=== PATIENT | female | born 1935 | race African-American/Black ===

== ENCOUNTER 2018-12-10 16:10 | Inpatient (IN) | payer MEDICARE ==
[~2018-12-10] VITALS: Ht 167.6 cm; Wt 103.0 kg
[2018-12-10] MEDS ORDERED: ONDANSETRON HCL 4MG/2ML INJ IV STA (19:44)
[2018-12-10] MEDS ORDERED: MORPHINE SULFATE 4 MG/ML CPJ (NOT FOR IM USE) IV STA (19:44)
[2018-12-10] MEDS ORDERED: SODIUM CHLORIDE 0.9% 1,000 ML IV ONE (19:44)
[2018-12-10] MEDS ORDERED: ACETAMINOPHEN 325MG TABLET PO ONE (20:30)
[2018-12-10] MEDS ORDERED: MAGNESIUM/ALUMINUM HYDROXIDE/SIMETHICONE 30ML UDC PO PRN (22:15)
[2018-12-10] MEDS ORDERED: ONDANSETRON HCL 4MG/2ML INJ IV PRN (22:15)
[2018-12-10] MEDS ORDERED: MORPHINE SULFATE 2 MG/ML CPJ (NOT FOR IM USE) IV PRN (22:15)
[2018-12-11 00:23] LABS: CHLORIDE 107 mEq/L (98-107)
[2018-12-11 00:24] LABS: BASOPHILS % 0.5 % (0.0-2.0); EOSINOPHILS % 2.7 % (0.0-5.0); HEMATOCRIT. 39.2 % (36.0-48.0); HEMOGLOBIN. 13.4 g/dL (12.0-16.0); LYMPHOCYTES % 31.4 % (20.0-50.0); MEAN CORPUSCULAR VOLUME 93.3 fL (81.0-99.0); MEAN PLATELET VOLUME 7.6 fl (7.4-10.4); MONOCYTES % 8.4 % (2.0-8.0); PLATELET 184 x1000/uL (130-400); RED CELL DISTRIBUTION WIDTH 14.6 % (11.6-14.6)
[2018-12-11 00:26] LABS: INR 1.1; PROTHROMBIN TIME 11.5 sec (9.6-11.0)
[2018-12-11] MEDS: ACETAMINOPHEN 325MG TABLET PO PRN ×2 (02:41→07:10)
[2018-12-11 03:59] VITALS: BP 146/76
[2018-12-11] MEDS: DEXT 5%/0.45% NACL 1000ML 1,000 ML IV SCH ×2 (06:41→21:03)
[2018-12-11 08:00] VITALS: BP_SYST 142; BP_SYST 172; BP_DIAS 81; BP_DIAS 90
[2018-12-11 09:30] LABS: BASOPHILS % 0.3 % (0.0-2.0); HEMATOCRIT. 40.8 % (36.0-48.0); HEMOGLOBIN. 13.9 g/dL (12.0-16.0); LYMPHOCYTES % 15.1 % (20.0-50.0); MEAN CORPUSCULAR HEMOGLOBIN 31.6 pg (28.0-32.0); MEAN PLATELET VOLUME 7.8 fl (7.4-10.4); MONOCYTES % 8.9 % (2.0-8.0); NEUTROPHILS % 73.7 % (40.0-76.0); PLATELET 187 x1000/uL (130-400); RED BLOOD CELL COUNT 4.39 mill/uL (4.2-5.4); RED CELL DISTRIBUTION WIDTH 14.4 % (11.6-14.6)
[2018-12-11] MEDS ORDERED: HYDRALAZINE 20MG/ML VIAL IV PRN (09:30)
[2018-12-11] MEDS ORDERED: POTASSIUM CHLORIDE INJ 40 MEQ in DEXT 5% WATER 250 ML IV SCH (09:30)
[2018-12-11 09:35] LABS: CHLORIDE 105 mEq/L (98-107)
[2018-12-11 09:43] LABS: LDL CHOLESTEROL 63 mg/dL (5-100)
[2018-12-11 09:44] LABS: HDL CHOLESTEROL 49 mg/dL (40-59); T4 FREE 0.96 ng/dL (0.76-1.46)
[2018-12-11] MEDS: ENOXAPARIN 30MG/0.3ML SYR SUBCUT SCH ×2 (10:45→21:03)
[2018-12-11] MEDS: CLONIDINE 0.1MG TABLET PO PRN (10:46)
[2018-12-11] MEDS: AMLODIPINE 10MG TABLET PO SCH (10:48)
[2018-12-11 12:00] VITALS: BP 142/81
[2018-12-11] MEDS: KETOROLAC 30MG/ML VIAL IV PRN ×2 (12:35→22:19)
[2018-12-11 16:00] VITALS: BP 128/73
[2018-12-11 16:07] LABS: CREATINE KINASE 91 IU/L (26-192)
[2018-12-11 16:08] LABS: CREATINE KINASE MB FRACTION < 1.0 ng/mL (0.5-3.6)
[2018-12-11] MEDS: DOCUSATE SODIUM 100MG CAPSULE PO PRN (18:57)
[2018-12-11 20:00] VITALS: BP 150/73
[2018-12-11 23:31] LABS: CREATINE KINASE 89 IU/L (26-192)
[2018-12-11 23:32] LABS: CREATINE KINASE MB FRACTION < 1.0 ng/mL (0.5-3.6)
[2018-12-12] VITALS (8 sets, daily range): BP systolic 126–165; BP diastolic 67–88
[2018-12-12] MEDS: KETOROLAC 30MG/ML VIAL IV PRN ×2 (04:55→19:36)
[2018-12-12 06:55] LABS: CREATINE KINASE 91 IU/L (26-192)
[2018-12-12 06:56] LABS: CREATINE KINASE MB FRACTION < 1.0 ng/mL (0.5-3.6)
[2018-12-12] MEDS: AMLODIPINE 10MG TABLET PO SCH (10:33)
[2018-12-12] MEDS: DOCUSATE SODIUM 100MG CAPSULE PO PRN (10:33)
[2018-12-12] MEDS: ENOXAPARIN 30MG/0.3ML SYR SUBCUT SCH ×2 (10:33→12:43)
[2018-12-12] MEDS: CLONIDINE 0.1MG TABLET PO PRN (10:34)
[2018-12-12] MEDS: ASPIRIN 81MG TABLET PO SCH ×2 (11:00→12:44)
[2018-12-12 12:08] LABS: CHLORIDE 102 mEq/L (98-107)
[2018-12-12] MEDS: DEXT 5%/0.45% NACL 1000ML 1,000 ML IV SCH (13:20)
[2018-12-12] MEDS: ACETAMINOPHEN 325MG TABLET PO PRN (20:17)
[2018-12-13] VITALS: BP 127/74
[2018-12-13] MEDS: KETOROLAC 30MG/ML VIAL IV PRN ×3 (02:50→21:38)
[2018-12-13 04:00] VITALS: BP 126/68
[2018-12-13] MEDS: ACETAMINOPHEN 325MG TABLET PO PRN (05:27)
[2018-12-13 06:38] LABS: CHLORIDE 103 mEq/L (98-107)
[2018-12-13 06:47] LABS: BASOPHILS % 0.4 % (0.0-2.0); EOSINOPHILS % 2.6 % (0.0-5.0); HEMATOCRIT. 40.7 % (36.0-48.0); HEMOGLOBIN. 14.1 g/dL (12.0-16.0); LYMPHOCYTES % 21.1 % (20.0-50.0); MEAN CORPUSCULAR VOLUME 92.7 fL (81.0-99.0); MONOCYTES % 10.7 % (2.0-8.0); NEUTROPHILS % 65.2 % (40.0-76.0); PLATELET 191 x1000/uL (130-400); RED BLOOD CELL COUNT 4.39 mill/uL (4.2-5.4); RED CELL DISTRIBUTION WIDTH 14.2 % (11.6-14.6)
[2018-12-13] MEDS ORDERED: PROPOFOL 200MG/20ML VIAL IV ONE ×2 (07:46→08:07)
[2018-12-13] MEDS ORDERED: MIDAZOLAM HCL 2 MG/2 ML VIAL ONE (07:46)
[2018-12-13] MEDS ORDERED: HYDROMORPHONE HCL/PF 2MG/ML (OR) ONE (07:47)
[2018-12-13] MEDS ORDERED: VANCOMYCIN HCL 500 MG/VIAL ONE (07:52)
[2018-12-13] MEDS ORDERED: ACETAMINOPHEN 325MG TABLET PO PRN (08:00)
[2018-12-13] MEDS ORDERED: HYDROCODONE/ACETAMINOPHEN 5/325MG TABLET PO PRN (08:00)
[2018-12-13] MEDS ORDERED: ONDANSETRON HCL 4MG/2ML INJ IV PRN ×2 (08:00→08:30)
[2018-12-13] MEDS ORDERED: BUPIVACAINE HCL/EPINEPHRINE 0.5%/0.0005 30ML ONE (08:03)
[2018-12-13] MEDS ORDERED: LABETALOL 5MG/ML SYR 20 MG/4 ML SYRINGE IV PRN (08:30)
[2018-12-13] MEDS ORDERED: HYDROMORPHONE HCL/PF 2MG/ML CPJ IV PRN (08:30)
[2018-12-13] MEDS ORDERED: MEPERIDINE HCL/PF 25MG/ML CPJ IV PRN (08:30)
[2018-12-13] MEDS ORDERED: BACITRACIN 15GM TUBE TOP ONE (08:34)
[2018-12-13] MEDS: ENOXAPARIN 30MG/0.3ML SYR SUBCUT SCH ×2 (09:00→21:38)
[2018-12-13] MEDS ORDERED: POTASSIUM CHLORIDE 20MEQ TABLET SR PO NR (09:45)
[2018-12-13 10:46] VITALS: BP 141/82
[2018-12-13 15:44] VITALS: BP 145/79
[2018-12-13] MEDS: AMLODIPINE 10MG TABLET PO SCH (15:45)
[2018-12-13] MEDS: HYDROCODONE/ACETAMINOPHEN 10/325MG TABLET PO PRN ×2 (19:51→23:09)
[2018-12-13 20:00] VITALS: BP 142/69
[2018-12-13] MEDS: DEXT 5%/0.45% NACL 1000ML 1,000 ML IV SCH ×2 (21:51→22:40)
[2018-12-14 00:05] VITALS: BP 138/73
[2018-12-14] MEDS: HYDROCODONE/ACETAMINOPHEN 10/325MG TABLET PO PRN ×2 (02:00→22:32)
[2018-12-14] MEDS: KETOROLAC 30MG/ML VIAL IV PRN (02:51)
[2018-12-14] MEDS: HYDROMORPHONE HCL/PF 2MG/ML CPJ IV PRN ×3 (03:37→18:50)
[2018-12-14 04:00] VITALS: BP 148/71
[2018-12-14 08:00] VITALS: BP 128/85
[2018-12-14] MEDS: ENOXAPARIN 30MG/0.3ML SYR SUBCUT SCH ×2 (09:40→20:40)
[2018-12-14] MEDS: AMLODIPINE 10MG TABLET PO SCH (09:41)
[2018-12-14] MEDS: ASPIRIN 81MG TABLET PO SCH (09:41)
[2018-12-14 12:00] VITALS: BP 140/67
[2018-12-14] MEDS: DEXT 5%/0.45% NACL 1000ML 1,000 ML IV SCH (15:20)
[2018-12-14 16:18] VITALS: BP 133/75
[2018-12-14] MEDS: CLONIDINE 0.1MG TABLET PO PRN (22:17)
[2018-12-14 22:32] VITALS: BP 169/83
== END 2018-12-14 22:35 | DRG 494 ==
LOC: ER 16:10 → 7WST 20:29 → EDBEDREQTM 20:30 → EDBEDREQ 20:30 → SUPCPDRO 22:06 → ENRESERV 12-11 02:34
PROVIDERS: ADMIT Hospitalist; ATTEND Hospitalist
PROC: 0QSJ04Z Reposition Right Fibula with Internal Fixation Device, Open Approach (ICD-10-PCS; principal; 2018-12-13)
PROC: 0QSG04Z Reposition Right Tibia with Internal Fixation Device, Open Approach (ICD-10-PCS; 2018-12-13)
PROC: 0SSF04Z Reposition Right Ankle Joint with Internal Fixation Device, Open Approach (ICD-10-PCS; 2018-12-13)
DX: S82.851A Displaced trimalleolar fracture of right lower leg, initial encounter for closed fracture (principal); E87.6 Hypokalemia; S93.439A Sprain of tibiofibular ligament of unspecified ankle, initial encounter; I10 Essential (primary) hypertension; E78.5 Hyperlipidemia, unspecified; Z96.653 Presence of artificial knee joint, bilateral; Z87.891 Personal history of nicotine dependence; Z79.899 Other long term (current) drug therapy; Z88.0 Allergy status to penicillin; Z88.5 Allergy status to narcotic agent; Z88.8 Allergy status to other drugs, medicaments and biological substances; X50.1XXA Overexertion from prolonged static or awkward postures, initial encounter; Y93.89 Activity, other specified; Y92.89 Other specified places as the place of occurrence of the external cause; Y99.8 Other external cause status
CPT/HCPCS: 36415; 71045; 73600; 73610; 73700; 76000; 80048; 80061; 82550; 82553; 83036; 83735; 83880; 84439; 84443; 84484; 85379; 93005; 93306; 93970; 97162; 97530; 99285; J0171; J1170; J1650; J1885; J2250; J2270; J2405; J2704; J3370; J3480; J7030; J7060

== ENCOUNTER 2018-12-14 22:45 | Inpatient (IN) | payer MEDICARE ==
[~2018-12-14] VITALS: Ht 167.6 cm; Wt 103.0 kg
[2018-12-14 22:45] VITALS: BP 125/73
[2018-12-15] MEDS ORDERED: ACETAMINOPHEN 325MG TABLET PO PRN (01:30)
[2018-12-15] MEDS ORDERED: HYDROMORPHONE HCL/PF 2MG/ML CPJ IV PRN (01:30)
[2018-12-15] MEDS ORDERED: CLONIDINE 0.1MG TABLET PO PRN (01:30)
[2018-12-15] MEDS ORDERED: MAGNESIUM/ALUMINUM HYDROXIDE/SIMETHICONE 30ML UDC PO PRN (01:45)
[2018-12-15] MEDS: HYDROCODONE/ACETAMINOPHEN 10/325MG TABLET PO PRN ×4 (05:13→17:00)
[2018-12-15 07:31] LABS: BASOPHILS % 0.5 % (0.0-2.0); EOSINOPHILS % 3.4 % (0.0-5.0); HEMATOCRIT. 37.2 % (36.0-48.0); HEMOGLOBIN. 12.5 g/dL (12.0-16.0); LYMPHOCYTES % 22.3 % (20.0-50.0); MEAN CORPUSCULAR HEMOGLOBIN 31.6 pg (28.0-32.0); MEAN PLATELET VOLUME 7.8 fl (7.4-10.4); NEUTROPHILS % 62.8 % (40.0-76.0); PLATELET 203 x1000/uL (130-400); RED BLOOD CELL COUNT 3.96 mill/uL (4.2-5.4); RED CELL DISTRIBUTION WIDTH 14.2 % (11.6-14.6)
[2018-12-15 07:35] LABS: CHLORIDE 105 mEq/L (98-107)
[2018-12-15 08:00] VITALS: BP 133/71
[2018-12-15] MEDS: ASPIRIN 81MG TABLET PO SCH (09:02)
[2018-12-15] MEDS: AMLODIPINE 10MG TABLET PO SCH (09:02)
[2018-12-15] MEDS: DOCUSATE SODIUM 100MG CAPSULE PO PRN (09:03)
[2018-12-15] MEDS: ENOXAPARIN 30MG/0.3ML SYR SUBCUT SCH ×2 (09:04→20:42)
[2018-12-15] MEDS ORDERED: BISACODYL 5MG TABLET PO PRN (15:15)
[2018-12-15] MEDS ORDERED: LACTULOSE 20G/30ML UDC PO NR (15:30)
[2018-12-15 20:00] VITALS: BP 158/87
[2018-12-16 07:54] VITALS: BP 179/94
[2018-12-16] MEDS: DOCUSATE SODIUM 100MG CAPSULE PO PRN (08:27)
[2018-12-16] MEDS: HYDROCODONE/ACETAMINOPHEN 10/325MG TABLET PO PRN ×3 (08:27→23:53)
[2018-12-16] MEDS: AMLODIPINE 10MG TABLET PO SCH (08:27)
[2018-12-16] MEDS: ASPIRIN 81MG TABLET PO SCH (08:27)
[2018-12-16] MEDS: ENOXAPARIN 30MG/0.3ML SYR SUBCUT SCH ×2 (08:28→20:21)
[2018-12-16] MEDS: LACTULOSE 20G/30ML UDC PO PRN (15:30)
[2018-12-16] MEDS: NA PHOS,M-B/NA PHOS,DI-BA ENEMA 118ML PR PRN (18:00)
[2018-12-16 20:00] VITALS: BP 150/85
[2018-12-17] MEDS: HYDROCODONE/ACETAMINOPHEN 10/325MG TABLET PO PRN (03:54)
[2018-12-17] MEDS: ONDANSETRON HCL 4MG TABLET PO PRN (08:12)
[2018-12-17 08:50] VITALS: BP 101/67
[2018-12-17] MEDS: ENOXAPARIN 30MG/0.3ML SYR SUBCUT SCH ×2 (08:52→21:05)
[2018-12-17] MEDS: ASPIRIN 81MG TABLET PO SCH (08:52)
[2018-12-17] MEDS: AMLODIPINE 10MG TABLET PO SCH (08:59)
[2018-12-17] MEDS: LIDOCAINE 5% PATCH TOP SCH (09:04)
[2018-12-17] MEDS: OXYCODONE HCL/ACETAMINOPHEN 5/325MG TABLET PO PRN ×2 (12:29→17:45)
[2018-12-17] MEDS: HYDROCODONE/ACETAMINOPHEN 5/325MG TABLET PO PRN (19:47)
[2018-12-17 20:00] VITALS: BP 158/91
[2018-12-17] MEDS: KETOROLAC 15MG/ML VIAL IV PRN (21:11)
[2018-12-18 07:41] VITALS: BP 175/101
[2018-12-18 07:48] VITALS: BP 175/101
[2018-12-18] MEDS: ASPIRIN 81MG TABLET PO SCH (08:24)
[2018-12-18] MEDS: AMLODIPINE 10MG TABLET PO SCH (08:24)
[2018-12-18] MEDS: ENOXAPARIN 30MG/0.3ML SYR SUBCUT SCH ×2 (08:25→21:00)
[2018-12-18] MEDS: LIDOCAINE 5% PATCH TOP SCH (08:25)
[2018-12-18] MEDS: HYDROCODONE/ACETAMINOPHEN 5/325MG TABLET PO PRN (12:38)
[2018-12-18] MEDS: KETOROLAC 15MG/ML VIAL IV PRN (14:19)
[2018-12-18] MEDS: LACTULOSE 20G/30ML UDC PO PRN (17:21)
[2018-12-18] MEDS ORDERED: BISACODYL 10MG SUPP PR NR (18:15)
[2018-12-18 20:00] VITALS: BP 113/60
[2018-12-19] MEDS: HYDROCODONE/ACETAMINOPHEN 5/325MG TABLET PO PRN ×3 (00:26→17:51)
[2018-12-19 01:30] VITALS: BP 172/103
[2018-12-19] MEDS: OXYCODONE HCL/ACETAMINOPHEN 5/325MG TABLET PO PRN (01:39)
[2018-12-19 02:39] VITALS: BP 151/85
[2018-12-19 06:43] LABS: CLARITY URINE CLEAR (CLEAR); COLOR URINE YELLOW (YELLOW); KETONES URINE NEGATIVE (NEGATIVE); LEUKOCYTE ESTERASE URINE 2+ (NEGATIVE); NITRITE URINE NEGATIVE (NEGATIVE); OCCULT BLOOD URINE TRACE (NEGATIVE); PH URINE 6.5 (4.5-8.0); PROTEIN URINE NEGATIVE (NEGATIVE); SPECIFIC GRAVITY URINE 1.019 (1.005-1.030)
[2018-12-19 06:56] LABS: BASOPHILS % 0.7 % (0.0-2.0); EOSINOPHILS % 3.6 % (0.0-5.0); HEMATOCRIT. 38.7 % (36.0-48.0); HEMOGLOBIN. 12.9 g/dL (12.0-16.0); LYMPHOCYTES % 30.3 % (20.0-50.0); MEAN CORPUSCULAR HEMOGLOBIN 31.1 pg (28.0-32.0); MEAN CORPUSCULAR VOLUME 92.9 fL (81.0-99.0); MEAN PLATELET VOLUME 7.6 fl (7.4-10.4); MONOCYTES % 11.4 % (2.0-8.0); PLATELET 245 x1000/uL (130-400); RED BLOOD CELL COUNT 4.16 mill/uL (4.2-5.4)
[2018-12-19 07:28] LABS: FOLIC ACID (FOLATE) SERUM 16.1 ng/mL (>5.38)
[2018-12-19 07:40] VITALS: BP 149/87
[2018-12-19] MEDS: POLYETHYLENE GLYCOL 3350 (17GM) 1 DOSE PACK PO SCH (08:08)
[2018-12-19] MEDS: LIDOCAINE 5% PATCH TOP SCH (08:09)
[2018-12-19] MEDS: DOCUSATE SODIUM 100MG CAPSULE PO SCH ×2 (08:10→17:53)
[2018-12-19] MEDS: AMLODIPINE 10MG TABLET PO SCH (08:10)
[2018-12-19] MEDS: ASPIRIN 81MG TABLET PO SCH (08:12)
[2018-12-19] MEDS: ENOXAPARIN 30MG/0.3ML SYR SUBCUT SCH ×2 (08:12→21:13)
[2018-12-19 08:46] LABS: CHLORIDE 103 mEq/L (98-107)
[2018-12-19 08:54] LABS: PHOSPHORUS 3.5 mg/dL (2.5-4.9); TOTAL IRON BINDING CAPACITY 249 ug/dL (250-450)
[2018-12-19] MEDS: ONDANSETRON HCL 4MG TABLET PO PRN (09:25)
[2018-12-19] MEDS: METOPROLOL TARTRATE 25MG TABLET PO SCH ×2 (09:27→21:13)
[2018-12-19] MEDS ORDERED: POTASSIUM CHLORIDE 20MEQ TABLET SR PO NR (11:00)
[2018-12-19] MEDS: LEVOFLOXACIN 250MG TABLET PO SCH (11:13)
[2018-12-19] MEDS: NA PHOS,M-B/NA PHOS,DI-BA ENEMA 118ML PR PRN (15:33)
[2018-12-19] MEDS: BISACODYL 10MG SUPP PR NR (16:00)
[2018-12-19] MEDS ORDERED: SORBITOL 70% SOLN 30ML PO NR (16:00)
[2018-12-19 20:00] VITALS: BP 143/68
[2018-12-20 08:04] VITALS: BP 130/77
[2018-12-20] MEDS: POLYETHYLENE GLYCOL 3350 (17GM) 1 DOSE PACK PO SCH (08:23)
[2018-12-20] MEDS: LIDOCAINE 5% PATCH TOP SCH (08:23)
[2018-12-20] MEDS: ASPIRIN 81MG TABLET PO SCH (08:24)
[2018-12-20] MEDS: DOCUSATE SODIUM 100MG CAPSULE PO SCH ×2 (08:24→16:17)
[2018-12-20] MEDS: METOPROLOL TARTRATE 25MG TABLET PO SCH ×2 (08:24→20:35)
[2018-12-20] MEDS: AMLODIPINE 10MG TABLET PO SCH (08:24)
[2018-12-20] MEDS: ENOXAPARIN 30MG/0.3ML SYR SUBCUT SCH ×2 (08:24→20:35)
[2018-12-20 08:28] LABS: CHLORIDE 107 mEq/L (98-107)
[2018-12-20] MEDS: LEVOFLOXACIN 250MG TABLET PO SCH (11:06)
[2018-12-20] MEDS ORDERED: KETOROLAC 15MG/ML VIAL IV PRN (12:00)
[2018-12-20] MEDS: ACETAMINOPHEN 325MG TABLET PO PRN (13:14)
[2018-12-20] MEDS: POTASSIUM CHLORIDE 20MEQ TABLET SR PO SCH (14:38)
[2018-12-20 20:00] VITALS: BP 144/81
[2018-12-20] MEDS: HYDROCODONE/ACETAMINOPHEN 5/325MG TABLET PO PRN (22:36)
[2018-12-21] MEDS: OXYCODONE HCL/ACETAMINOPHEN 5/325MG TABLET PO PRN (02:41)
[2018-12-21 08:00] VITALS: BP 153/87
[2018-12-21] MEDS: POLYETHYLENE GLYCOL 3350 (17GM) 1 DOSE PACK PO SCH (08:55)
[2018-12-21] MEDS: LIDOCAINE 5% PATCH TOP SCH (08:56)
[2018-12-21] MEDS: ASPIRIN 81MG TABLET PO SCH (08:56)
[2018-12-21] MEDS: DOCUSATE SODIUM 100MG CAPSULE PO SCH ×2 (08:56→17:17)
[2018-12-21] MEDS: ENOXAPARIN 30MG/0.3ML SYR SUBCUT SCH ×2 (08:56→21:58)
[2018-12-21] MEDS: AMLODIPINE 10MG TABLET PO SCH (08:57)
[2018-12-21] MEDS: POTASSIUM CHLORIDE 20MEQ TABLET SR PO SCH (08:57)
[2018-12-21] MEDS: METOPROLOL TARTRATE 25MG TABLET PO SCH ×2 (08:57→21:59)
[2018-12-21] MEDS: LEVOFLOXACIN 250MG TABLET PO SCH (11:13)
[2018-12-21] MEDS: HYDROCODONE/ACETAMINOPHEN 5/325MG TABLET PO PRN (15:20)
[2018-12-21] MEDS ORDERED: LACTULOSE 20G/30ML UDC PO SCH (16:12)
[2018-12-21 20:00] VITALS: BP_SYST 136; BP_SYST 149; BP_DIAS 70; BP_DIAS 74
[2018-12-21] MEDS: LACTULOSE 20G/30ML UDC PO PRN (21:57)
[2018-12-22] MEDS: OXYCODONE HCL/ACETAMINOPHEN 5/325MG TABLET PO PRN (06:41)
[2018-12-22 07:33] LABS: CHLORIDE 108 mEq/L (98-107)
[2018-12-22 08:00] VITALS: BP 149/87
[2018-12-22] MEDS: ASPIRIN 81MG TABLET PO SCH (08:47)
[2018-12-22] MEDS: METOPROLOL TARTRATE 25MG TABLET PO SCH ×2 (08:47→21:00)
[2018-12-22] MEDS: POTASSIUM CHLORIDE 20MEQ TABLET SR PO SCH (08:47)
[2018-12-22] MEDS: AMLODIPINE 10MG TABLET PO SCH (08:48)
[2018-12-22] MEDS: DOCUSATE SODIUM 100MG CAPSULE PO SCH ×2 (08:48→16:28)
[2018-12-22] MEDS: ENOXAPARIN 30MG/0.3ML SYR SUBCUT SCH ×2 (08:49→21:00)
[2018-12-22] MEDS: LIDOCAINE 5% PATCH TOP SCH (08:49)
[2018-12-22] MEDS: POLYETHYLENE GLYCOL 3350 (17GM) 1 DOSE PACK PO SCH (08:54)
[2018-12-22] MEDS: HYDROCODONE/ACETAMINOPHEN 5/325MG TABLET PO PRN ×2 (10:26→14:40)
[2018-12-22 19:07] LABS: CLARITY URINE CLOUDY (CLEAR); COLOR URINE YELLOW (YELLOW); KETONES URINE TRACE (NEGATIVE); LEUKOCYTE ESTERASE URINE 2+ (NEGATIVE); NITRITE URINE NEGATIVE (NEGATIVE); OCCULT BLOOD URINE NEGATIVE (NEGATIVE); PH URINE 5.5 (4.5-8.0); PROTEIN URINE NEGATIVE (NEGATIVE); SPECIFIC GRAVITY URINE 1.025 (1.005-1.030)
[2018-12-22 20:00] VITALS: BP 128/76
[2018-12-23] MEDS: LIDOCAINE 5% PATCH TOP SCH ×2 (01:51→16:55)
[2018-12-23] MEDS: HYDROCODONE/ACETAMINOPHEN 5/325MG TABLET PO PRN ×5 (02:05→22:52)
[2018-12-23 04:09] LABS: 25-HYDROXY VITAMIN D3 22 ng/mL (.)
[2018-12-23 08:19] VITALS: BP 136/75
[2018-12-23] MEDS: DOCUSATE SODIUM 100MG CAPSULE PO SCH ×2 (08:36→16:54)
[2018-12-23] MEDS: ASPIRIN 81MG TABLET PO SCH (08:36)
[2018-12-23] MEDS: POTASSIUM CHLORIDE 20MEQ TABLET SR PO SCH (08:36)
[2018-12-23] MEDS: METOPROLOL TARTRATE 25MG TABLET PO SCH ×2 (08:37→21:52)
[2018-12-23] MEDS: AMLODIPINE 10MG TABLET PO SCH (08:37)
[2018-12-23] MEDS: ENOXAPARIN 30MG/0.3ML SYR SUBCUT SCH ×2 (08:38→21:52)
[2018-12-23] MEDS: POLYETHYLENE GLYCOL 3350 (17GM) 1 DOSE PACK PO SCH (08:38)
[2018-12-23 14:10] VITALS: BP 149/82
[2018-12-23 16:15] VITALS: BP 140/80
[2018-12-23 18:30] VITALS: BP 147/84
[2018-12-23] MEDS ORDERED: ERGOCALCIFEROL 50000UNITS CAPSULE PO SCH (18:30)
[2018-12-23 20:00] VITALS: BP 164/85
[2018-12-24] MEDS: HYDROCODONE/ACETAMINOPHEN 5/325MG TABLET PO PRN ×4 (02:50→20:42)
[2018-12-24] MEDS: POLYETHYLENE GLYCOL 3350 (17GM) 1 DOSE PACK PO SCH (08:23)
[2018-12-24] MEDS: DOCUSATE SODIUM 100MG CAPSULE PO SCH (08:23)
[2018-12-24] MEDS: ASPIRIN 81MG TABLET PO SCH (08:23)
[2018-12-24] MEDS: POTASSIUM CHLORIDE 20MEQ TABLET SR PO SCH (08:23)
[2018-12-24] MEDS: ENOXAPARIN 30MG/0.3ML SYR SUBCUT SCH ×2 (08:23→20:41)
[2018-12-24] MEDS: LIDOCAINE 5% PATCH TOP SCH ×2 (08:26)
[2018-12-24] MEDS: AMLODIPINE 10MG TABLET PO SCH (08:27)
[2018-12-24] MEDS: METOPROLOL TARTRATE 25MG TABLET PO SCH ×2 (08:27→20:41)
[2018-12-24 08:44] VITALS: BP 158/83
[2018-12-24 20:00] VITALS: BP 153/64
[2018-12-25] MEDS: HYDROCODONE/ACETAMINOPHEN 5/325MG TABLET PO PRN ×2 (03:19→07:41)
[2018-12-25] MEDS: DOCUSATE SODIUM 100MG CAPSULE PO PRN (03:20)
[2018-12-25 08:00] VITALS: BP 161/84
[2018-12-25] MEDS: LIDOCAINE 5% PATCH TOP SCH ×2 (09:00→09:22)
[2018-12-25] MEDS ORDERED: ZINC SULFATE 220 MG ( 50 ) CAPSULE PO SCH (09:00)
[2018-12-25] MEDS: ASCORBIC ACID 500 MG TABLET PO SCH (09:22)
[2018-12-25] MEDS: ENOXAPARIN 30MG/0.3ML SYR SUBCUT SCH ×2 (09:22→20:00)
[2018-12-25] MEDS: POLYETHYLENE GLYCOL 3350 (17GM) 1 DOSE PACK PO SCH (09:22)
[2018-12-25] MEDS: ASPIRIN 81MG TABLET PO SCH (09:23)
[2018-12-25] MEDS: METOPROLOL TARTRATE 25MG TABLET PO SCH ×2 (09:23→20:01)
[2018-12-25] MEDS: DOCUSATE SODIUM 100MG CAPSULE PO SCH ×2 (09:23→16:32)
[2018-12-25] MEDS: AMLODIPINE 10MG TABLET PO SCH (09:23)
[2018-12-25] MEDS: POTASSIUM CHLORIDE 20MEQ TABLET SR PO SCH (09:23)
[2018-12-25] MEDS: OXYCODONE HCL/ACETAMINOPHEN 5/325MG TABLET PO PRN ×2 (11:58→20:02)
[2018-12-25 20:00] VITALS: BP 138/97
[2018-12-25] MEDS: NITROFURANTOIN 100MG M/M CAPSULE PO SCH (20:01)
[2018-12-26 08:03] VITALS: BP 152/78
[2018-12-26] MEDS: ONDANSETRON HCL 4MG TABLET PO PRN (09:50)
[2018-12-26] MEDS: OXYCODONE HCL/ACETAMINOPHEN 5/325MG TABLET PO PRN (09:51)
[2018-12-26] MEDS: POLYETHYLENE GLYCOL 3350 (17GM) 1 DOSE PACK PO SCH (09:51)
[2018-12-26] MEDS: LIDOCAINE 5% PATCH TOP SCH ×2 (09:58)
[2018-12-26] MEDS: ENOXAPARIN 30MG/0.3ML SYR SUBCUT SCH (09:59)
[2018-12-26] MEDS: ASCORBIC ACID 500 MG TABLET PO SCH (09:59)
[2018-12-26] MEDS: DOCUSATE SODIUM 100MG CAPSULE PO SCH (09:59)
[2018-12-26] MEDS: NITROFURANTOIN 100MG M/M CAPSULE PO SCH (09:59)
[2018-12-26] MEDS: POTASSIUM CHLORIDE 20MEQ TABLET SR PO SCH (09:59)
[2018-12-26] MEDS: ASPIRIN 81MG TABLET PO SCH (09:59)
[2018-12-26] MEDS: METOPROLOL TARTRATE 25MG TABLET PO SCH (10:00)
[2018-12-26] MEDS: AMLODIPINE 10MG TABLET PO SCH (10:00)
[2018-12-26 10:38] VITALS: BP 18/152
[2018-12-26] MEDS: ACETAMINOPHEN 325MG TABLET PO PRN (17:21)
== END 2018-12-26 18:40 | disposition home health service (06) | DRG 563 ==
LOC: UNDOADMIN 23:52
PROVIDERS: ADMIT Psychiatry & Neurology Neurology; ATTEND Hospitalist
DX: S82.851A Displaced trimalleolar fracture of right lower leg, initial encounter for closed fracture (principal); N39.0 Urinary tract infection, site not specified; L97.919 Non-pressure chronic ulcer of unspecified part of right lower leg with unspecified severity; I10 Essential (primary) hypertension; K59.00 Constipation, unspecified; Z96.653 Presence of artificial knee joint, bilateral; R26.9 Unspecified abnormalities of gait and mobility; F06.31 Mood disorder due to known physiological condition with depressive features; E66.9 Obesity, unspecified; B95.8 Unspecified staphylococcus as the cause of diseases classified elsewhere; M85.80 Other specified disorders of bone density and structure, unspecified site; W18.11XA Fall from or off toilet without subsequent striking against object, initial encounter; F32.9 Major depressive disorder, single episode, unspecified; F41.9 Anxiety disorder, unspecified; Y93.89 Activity, other specified; Y99.8 Other external cause status; Y92.098 Other place in other non-institutional residence as the place of occurrence of the external cause; Z68.36 Body mass index [BMI] 36.0-36.9, adult; Y92.091 Bathroom in other non-institutional residence as the place of occurrence of the external cause
CPT/HCPCS: 36415; 73610; 73630; 80048; 81003; 82306; 82607; 82728; 82746; 83540; 83550; 83735; 84100; 84443; 84550; 87077; 87186; 97110; 97116; 97162; 97166; 97530; 97535; A6261; J1170; J1650; J1885; Q0162

== ENCOUNTER 2019-02-15 18:19 | Inpatient (IN) | payer MEDICARE ==
[~2019-02-15] VITALS: Ht 170.2 cm; Wt 93.7 kg
[2019-02-15] MEDS ORDERED: AMLO10TA80 PO ×2 (18:20→23:39)
[2019-02-15 18:45] LABS: HEMATOCRIT. 38.7 % (36.0-48.0); HEMOGLOBIN. 13.1 g/dL (12.0-16.0); MEAN CORPUSCULAR HEMOGLOBIN 30.7 pg (28.0-32.0); MEAN CORPUSCULAR VOLUME 90.7 fL (81.0-99.0); PLATELET 421 x1000/uL (130-400); RED BLOOD CELL COUNT 4.26 mill/uL (4.2-5.4); RED CELL DISTRIBUTION WIDTH 14.2 % (11.6-14.6)
[2019-02-15 18:51] LABS: CHLORIDE 100 mEq/L (98-107); INR 1.1; PROTHROMBIN TIME 11.5 sec (9.6-11.0)
[2019-02-15 18:57] LABS: ETHANOL BLOOD < 10 mg/dL
[2019-02-15 18:59] LABS: LDL CHOLESTEROL 71 mg/dL (5-100)
[2019-02-15] MEDS ORDERED: SODIUM CHLORIDE 0.9% 1,000 ML IV ONE (19:06)
[2019-02-15 20:00] VITALS: BP 130/76
[2019-02-15] MEDS ORDERED: ONDANSETRON HCL 4MG/2ML INJ IV PRN (20:00)
[2019-02-15] MEDS ORDERED: CLONIDINE 0.1MG TABLET PO PRN (20:00)
[2019-02-15] MEDS ORDERED: DOCUSATE SODIUM 100MG CAPSULE PO PRN (20:00)
[2019-02-15] MEDS ORDERED: ENOXAPARIN 40MG/0.4ML SYR SUBCUT SCH (20:00)
[2019-02-15 20:03] LABS: PLATELET ESTIMATE INCREASED
[2019-02-15 20:46] LABS: CLARITY URINE CLOUDY (CLEAR); COLOR URINE YELLOW (YELLOW); KETONES URINE NEGATIVE (NEGATIVE); LEUKOCYTE ESTERASE URINE 2+ (NEGATIVE); NITRITE URINE NEGATIVE (NEGATIVE); OCCULT BLOOD URINE TRACE (NEGATIVE); PROTEIN URINE NEGATIVE (NEGATIVE); SPECIFIC GRAVITY URINE 1.014 (1.005-1.030)
[2019-02-15 21:00] VITALS: BP 130/74
[2019-02-15 21:45] LABS: *AMPHETAMINES SCREEN URINE NEGATIVE (NEGATIVE); *BARBITURATES SCREEN URINE NEGATIVE (NEGATIVE); *BENZODIAZEPINES SCREEN URINE NEGATIVE (NEGATIVE); *COCAINE SCREEN URINE NEGATIVE (NEGATIVE); METHADONE URINE SCREEN NEGATIVE (NEGATIVE)
[2019-02-15 21:46] LABS: CANNABINOID URINE SCREEN PRESUMTIVE POSITIVE (NEGATIVE); OPIATES URINE SCREEN NEGATIVE (NEGATIVE); PHENCYCLIDINE URINE SCREEN NEGATIVE (NEGATIVE)
[2019-02-15] MEDS: HYDROCODONE/ACETAMINOPHEN 5/325MG TABLET PO PRN (22:41)
[2019-02-15] MEDS: AMLODIPINE 10MG TABLET PO SCH (22:42)
[2019-02-15] MEDS ORDERED: LEVOFLOXACIN 500MG PREMIX 100 ML IV SCH (23:00)
[2019-02-15] MEDS ORDERED: POTASSIUM CHLORIDE 20MEQ TABLET SR PO SCH (23:00)
[2019-02-15] MEDS ORDERED: ASPI-1393 PO (23:39)
[2019-02-16] VITALS (8 sets, daily range): BP systolic 94–195; BP diastolic 43–96
[2019-02-16] MEDS: LEVOFLOXACIN 500MG PREMIX 100 ML IV SCH ×2 (00:17→23:08)
[2019-02-16 00:28] LABS: CREATINE KINASE 70 IU/L (26-192)
[2019-02-16 00:29] LABS: CREATINE KINASE MB FRACTION < 1.0 ng/mL (0.5-3.6)
[2019-02-16] MEDS ORDERED: VANCOMYCIN 1500MG in DEXTROSE 5% WATER 250ML IV NR (01:00)
[2019-02-16] MEDS: ACETAMINOPHEN 325MG TABLET PO PRN ×2 (01:48→12:53)
[2019-02-16] MEDS: HYDROCODONE/ACETAMINOPHEN 5/325MG TABLET PO PRN ×4 (02:42→21:18)
[2019-02-16 06:43] LABS: CHLORIDE 101 mEq/L (98-107)
[2019-02-16 06:54] LABS: CREATINE KINASE 77 IU/L (26-192)
[2019-02-16 06:55] LABS: CREATINE KINASE MB FRACTION < 1.0 ng/mL (0.5-3.6)
[2019-02-16] MEDS: ENOXAPARIN 30MG/0.3ML SYR SUBCUT SCH ×2 (09:48→20:53)
[2019-02-16] MEDS: AMLODIPINE 10MG TABLET PO SCH (09:49)
[2019-02-16] MEDS: ASPIRIN 81MG EC TABLET PO SCH (09:49)
[2019-02-16] MEDS ORDERED: VANCOMYCIN 1 G PREMIX 200 ML IV SCH (20:00)
[2019-02-16] MEDS ORDERED: VANCOMYCIN 1250MG in DEXTROSE 5% WATER 250ML IV SCH (21:00)
[2019-02-17] VITALS: BP 121/68
[2019-02-17 04:00] VITALS: BP 143/78
[2019-02-17 08:00] VITALS: BP 164/84
[2019-02-17 08:06] VITALS: BP 130/73
[2019-02-17] MEDS: ASPIRIN 81MG EC TABLET PO SCH (08:45)
[2019-02-17] MEDS: AMLODIPINE 10MG TABLET PO SCH (08:45)
[2019-02-17] MEDS: ENOXAPARIN 30MG/0.3ML SYR SUBCUT SCH (08:46)
[2019-02-17 12:00] VITALS: BP 142/79
== END 2019-02-17 13:25 | disposition home health service (06) | DRG 872 ==
LOC: ER 18:19 → 6WST 19:49 → EDBEDREQ 19:54 → EDBEDREQTM 19:54 → ENRESERV 20:16
PROVIDERS: ADMIT Hospitalist; ATTEND Hospitalist
DX: A41.9 Sepsis, unspecified organism (principal); G45.9 Transient cerebral ischemic attack, unspecified; E44.1 Mild protein-calorie malnutrition; N39.0 Urinary tract infection, site not specified; R55 Syncope and collapse; D72.825 Bandemia; R73.9 Hyperglycemia, unspecified; I10 Essential (primary) hypertension; R29.810 Facial weakness; Z88.6 Allergy status to analgesic agent; Z88.0 Allergy status to penicillin; Z88.8 Allergy status to other drugs, medicaments and biological substances; Z79.899 Other long term (current) drug therapy; Z87.81 Personal history of (healed) traumatic fracture; Z68.32 Body mass index [BMI] 32.0-32.9, adult
CPT/HCPCS: 36415; 70551; 71045; 80305; 80320; 81003; 82550; 82553; 82962; 83036; 83721; 84484; 87070; 87077; 87186; 92610; 93005; 93880; 93970; 97116; 97162; 99285; J1650; J1956; J3370; J7030; J7060; G0480